=== PATIENT | female | born 1990 | race Hispanic/Latino ===

== ENCOUNTER 2019-06-27 11:53 | Inpatient (IN) | payer BC, OTHER ==
[2019-06-27] MEDS ORDERED: Acetaminophen 500 MG TAB PO PRN (12:05)
[2019-06-27] MEDS ORDERED: Lidocaine 1% (PF) 30 ML VIAL SC PRN (12:05)
[2019-06-27] MEDS ORDERED: Docusate 100 MG CAP PO PRN (12:05)
[2019-06-27] MEDS ORDERED: NS / Oxytocin 40 units/1000ml 1,000 ML IV PRN (12:05)
[2019-06-27] MEDS ORDERED: Butorphanol Tartrate 1 MG/ML VIAL SLOW IVP PRN (12:05)
[2019-06-27] MEDS ORDERED: Misoprostol 200 MCG TAB PR PRN (12:05)
[2019-06-27] MEDS ORDERED: Promethazine HCl 25 MG/ML VIAL IM PRN (12:05)
[2019-06-27] MEDS ORDERED: hydrALAZINE 20 MG/ML VIAL SLOW IVP PRN ×2 (12:05→16:13)
[2019-06-27] MEDS ORDERED: Ibuprofen 800 MG TAB PO PRN (12:05)
[2019-06-27] MEDS ORDERED: Diphenoxylate HCl/Atropine Tablet PO PRN ×2 (12:05)
[2019-06-27] MEDS ORDERED: Ondansetron PF 4 MG/2 ML Vial IVP PRN ×2 (12:05→16:13)
[2019-06-27] MEDS ORDERED: HYDROcodone/Acetaminophen 5/325 mg Tablet PO PRN ×2 (12:05)
[2019-06-27] MEDS ORDERED: NS w/ Oxytocin 10 units 500 ML IV SCH ×2 (12:15)
[2019-06-27 12:29] VITALS: BMI 35.9
[2019-06-27 13:27] LABS: Mean Corpuscular HGB CONC 34.4 g/dL (32.0-36.0); Mean Corpuscular Hemoglobin 30.3 pg (27.0-31.0); Mean Corpuscular Volume 88.2 fL (78.0-98.0); Mean Platelet Volume 8.6 fL (7.4-10.4); Platelet Count 174 thou/uL (130-400); RBC Distribution Width 12.6 % (11.5-14.5); Red Blood Cell (RBC) Count 3.97 mill/uL (4.20-5.40)
[2019-06-27] MEDS: Lactated Ringer's 1,000 ML IV SCH (13:29)
[2019-06-27 14:13] LABS: Syphilis Antibody Nonreactive (Nonreactive); Syphilis Antibody Index 0.04 S/CO (<1.00 Non-Reactive)
[2019-06-27 14:14] LABS: HBSAg Index 0.17 S/CO (0-0.99); Hep B Surf Ag Non-Reactive S/CO (NonReactive)
[2019-06-27] MEDS ORDERED: Benzocaine-Menthol 82.5 ML CAN TOP PRN (16:13)
[2019-06-27] MEDS ORDERED: Preparation H Ointment 28 GM TUBE PR PRN (16:13)
[2019-06-27] MEDS ORDERED: Misoprostol 200 MCG TAB VAG PRN (16:13)
[2019-06-27] MEDS ORDERED: Bisacodyl 10 MG SUPP PR PRN (16:13)
[2019-06-27] MEDS ORDERED: Lanolin Ointment 7 GM TUBE TOP PRN (16:13)
[2019-06-27] MEDS ORDERED: Acetaminophen/Codeine 30-300mg Tablet PO PRN ×2 (16:13)
[2019-06-27] MEDS ORDERED: Zolpidem Tartrate 5 MG TAB PO PRN (16:13)
[2019-06-27] MEDS ORDERED: diphenhydrAMINE 25 MG CAP PO PRN (16:13)
[2019-06-27] MEDS ORDERED: Milk Of Magnesia 30 ML UDCUP PO PRN (16:13)
[2019-06-27] MEDS: NS / Oxytocin 40 units/1000ml 1,000 ML IV SCH ×2 (16:22→22:53)
[2019-06-27] MEDS: Ibuprofen 800 MG TAB PO SCH (18:02)
[2019-06-27] MEDS: Ferrous Sulfate 325 MG TAB PO SCH (23:30)
[2019-06-28] MEDS: Docusate Calcium (SURFAK) 240 MG CAP PO SCH ×2 (01:07→09:31)
[2019-06-28] MEDS: Ibuprofen 800 MG TAB PO SCH ×3 (01:10→14:27)
[2019-06-28] MEDS: Ferrous Sulfate 325 MG TAB PO SCH ×2 (07:35→16:05)
[2019-06-28] MEDS ORDERED: Prenatal Vitamin 1 TAB PO SCH (09:00)
[2019-06-28 12:05] VITALS: BP 114/63; TEMP 97.8
[2019-06-28] MEDS ORDERED: Adacel (T-DAP) 0.5 ML SYRINGE IM ONE (16:13)
== END 2019-06-28 17:25 | disposition home or self-care (01) | DRG 807 ==
LOC: L&D 11:53 → 3SW 18:39
PROVIDERS: ADMIT Obstetrics & Gynecology; ATTEND Obstetrics & Gynecology
PROC: 10E0XZZ Delivery of Products of Conception, External Approach (ICD-10-PCS; principal; 2019-06-27)
PROC: 10907ZC Drainage of Amniotic Fluid, Therapeutic from Products of Conception, Via Natural or Artificial Opening (ICD-10-PCS; 2019-06-27)
DX: O80 Encounter for full-term uncomplicated delivery (principal); Z37.0 Single live birth; Z3A.38 38 weeks gestation of pregnancy
CPT/HCPCS: 36415; 85027; 85461; 86780; 86850; 86900; 86901; 87340; 90384; 90715; 96372; J2001